=== PATIENT | male | born 1980 | race African-American/Black ===

== ENCOUNTER 2017-07-08 15:40 | Emergency (ER) | payer SELFPAY ==
[~2017-07-08] VITALS: Ht 170.2 cm; Wt 65.0 kg
[~2017-07-08 15:40] MED LIST: ADDE20XR PO; XANA1TAB PO
[2017-07-08 15:43] VITALS: BP 136/85; PULSE 95; RESP 16; TEMP 98.2; O2SAT 98
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
== END 2017-07-08 17:50 | disposition left against medical advice (07) ==
LOC: NEPD 15:40
DX: M25.512 Pain in left shoulder (principal); Z72.0 Tobacco use
CPT/HCPCS: 99281

== ENCOUNTER 2017-11-19 20:13 | Emergency (ER) | payer SELFPAY ==
[~2017-11-19] VITALS: Ht 170.2 cm; Wt 65.9 kg
[2017-11-19 20:14] VITALS: BP 117/70; PULSE 84; RESP 16; TEMP 97.9; O2SAT 99
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
== END 2017-11-19 22:00 | disposition left against medical advice (07) ==
LOC: NEPK 20:13
DX: Z20.2 Contact with and (suspected) exposure to infections with a predominantly sexual mode of transmission (principal)
CPT/HCPCS: 99281